=== PATIENT | male | born 1985 | race Hispanic/Latino ===

== ENCOUNTER 2024-11-06 06:37 | Emergency (ER) | payer SELFPAY ==
[2024-11-06 06:42] VITALS: BP 137/84
[2024-11-06 07:28] VITALS: BMI 26.8
[2024-11-06] MEDS: DECADRON 10 MG PO (07:35)
[2024-11-06] MEDS: TORADOL 30 MG IM (07:36)
[2024-11-06] MEDS: VALIUM 5 MG PO (07:36)
--- NOTE | 2024-11-06 08:16 | ED.GENMED ---
History of Present Illness
General
Chief Complaint: Musculo-Skeletal Complaint
Source: patient and spouse
Exam Limitations: none
Time Seen by Provider: 11/06/24 07:15
Nursing documentation reviewed up to this point in time: agreed with
History of Present Illness
History of Present Illness:
39-year-old male without significant past medical history presenting to the emergency department today with concerns of shoulder discomfort on the right side for the past few days. Works at [employer] and does heavy lifting every day but denies any
specific known injuries. Increased discomfort with movement no chest pain shortness of breath fevers no cough no recent illness
Review of Systems
Review of Systems
Allergies reviewed?: Yes
All Other Systems: ROS reviewed and negative except as documented in HPI and ROS
Phy Exam
Physical Exam
Physical Exam:
GENERAL: Alert , in no apparent distress
EYE: pupils equal and reactive
NECK: Supple, no significant adenopathy.
ENT: o/p clr, mmm.
CARDIAC: Regular rate and rhythm .
LUNGS: Clear breath sounds bilaterally, no acute respiratory distress, no wheezes/rales/rhonchi
ABDOMEN: Soft, without focal tenderness, no r/g, no cvat
NEUROLOGICAL: Alert and oriented, no focal neuro deficits
SKIN: Warm and dry, skin intact.
MUSCULOSKELETAL: Patient has muscle tightness to the right trapezius the right sided rhomboid muscles reproducible discomfort to the area some vague swelling no significant redness or warmth able to range the areas but has increased comfort when
moving those areas. No specific midline able to range the head and neck. Shoulder itself without specific tenderness to the deltoid or the upper arm. Able to move at the right shoulder with good flexion normal elbow and wrist movement. Normal
stock puller strength no edema, well perfused.
PSYCH: Normal and appropriate interaction.
Course
Orders/Labs/Results
Orders:
Orders
11/06/24 07:16
CR Shoulder, Trauma - Right Urgent
Comment:
Reason For Exam: shoulder pain
11/06/24 07:28
Dexamethasone [Decadron] 10 mg PO NOW STA
Diazepam [Valium] 5 mg PO NOW STA
Ketorolac [Toradol] 30 mg IM NOW STA
Vital Signs
Initial and Last Documented VS:
Initial Vital Signs
Temp Pulse Resp BP Pulse Ox
98.8 F 68 20 137/84 98
11/06/24 06:42 11/06/24 06:42 11/06/24 06:42 11/06/24 06:42 11/06/24 06:42
Last Documented Vital Signs
Temp Pulse Resp BP Pulse Ox
98.4 F 55 16 121/75 97
11/06/24 09:10 11/06/24 09:10 11/06/24 09:10 11/06/24 09:10 11/06/24 09:10
MDM/Problems Addressed
MDM/Problems Addressed:
39-year-old male presenting to the emergency department today with concerns of right-sided shoulder discomfort over the past few days. Has been doing heavy lifting while at work over the past few months. Here reproducible discomfort with movement
of the trapezius and rhomboids of the right side. Noted the deltoid or remainder of the upper extremity no midline pain to the neck. Symptoms are very reproducible and potential inciting event with heavy lifting at work with likely mechanical
pain. Does not seem to be consistent with referred discomfort from the heart or lungs.
Patient was given medications and was reassessed now feeling much better x-ray without signs of acute abnormalities. Patient appears stable for discharge. Return precautions given.
*Critical Care Note
Total Time (30-74mins, 75-104mins- exclusive of procedures): Not Applicable
ED Attending Note
-
Portions of this chart may have been created with voice recognition software.� Occasional wrong word or��sound alike� substitutions may have occurred due to the inherent limitations of voice recognition software.
Discharge Plan
Departure
Patient Disposition: Home (Routine Discharge)
Date of Disposition: 11/06/24
Time of Disposition: 08:38
Patient with high blood pressure during this ER visit?: No
Condition: Good
Covid-19: Not Applicable
Discharge Problem:
Right shoulder strain
Instructions: Muscle Strain (DC)
Prescriptions:
New
cyclobenzaprine 10 mg tablet
10 mg PO HS PRN (Reason: muscle spasm) Qty: 7 0RF
prednisone 20 mg tablet
40 mg PO DAILY 3 Days Qty: 6 0RF
Referrals:
Louis Sorto MD [Active] - Follow up in 5-7 days
Stand Alone Forms: Return to Work
Activity Restrictions/Additional Instructions:
You came to the emergency department today with concerns of shoulder discomfort. Here you have a reassuring x-ray. Please take the prescribed medications and rest over the next few days. Please follow-up with orthopedics if symptoms persist
otherwise return for any worsening, new or concerning symptoms to the ER.
Interventions
Interventions:
*Risk Screen - Suicide Last Done: 11/06/24 06:42
*General Assessment Last Done: 11/06/24 06:42
*Neglect/Abuse Screening Last Done: 11/06/24 06:42
ED- Fall Risk Assessment Last Done: 11/06/24 06:42
*ED COVID-19 Vaccine History Last Done: 11/06/24 06:42
*Nursing Disposition Last Done: 11/06/24 09:10
ED-Musculoskeletal Assessment Last Done: 11/06/24 07:28
Discharge Date and Time
Discharge Date/Time: 11/06/24 09:30
Print Language: ARGENTINE
[2024-11-06 09:10] VITALS: BP 121/75
--- NOTE | 2024-11-06 09:10 | EDRN ---
REviewed discharge instructions with patient. Verbalized understanding. Waiting for Ed Martell LONG to speak to him before leaving.
== END 2024-11-06 09:30 | disposition home or self-care (01) ==
LOC: EMR 06:37
PROVIDERS: EMERGENCY PHYSICIAN Emergency Medicine
DX: S46.911A Strain of unspecified muscle, fascia and tendon at shoulder and upper arm level, right arm, initial encounter (principal); X50.0XXA Overexertion from strenuous movement or load, initial encounter
CPT/HCPCS: 96372; 99284; 73030